=== PATIENT | male | born 1985 | race Caucasian/White ===

== ENCOUNTER 2018-08-16 14:15 | Emergency (ER) | payer MEDICAID ==
--- NOTE | 2018-08-16 14:41 | EDM.PDOC ---
ED HPI GENERAL MEDICAL PROBLEM - General Chief Complaint: Lower Extremity Injury/Pain Stated Complaint: LT FOOT INJURY Time Seen by Provider: 08/16/18 14:30 Source of Information: Reports: Patient History Limitations: Reports: No Limitations - History of Present Illness INITIAL COMMENTS - FREE TEXT/NARRATIVE: 33 yo male inverted his L foot on a hill about 11 am today. Has pain and swelling to the lateral foot. Took ibuprofen before arrival with good relief. Onset: Today Onset Date: 08/16/18 Onset Time: 11:00 Duration: Hour(s):, Constant, Improving Location: Reports: Lower Extremity, Left Quality: Reports: Dull Severity: Mild Improves with: Reports: Rest Worsens with: Reports: Movement Context: Reports: Trauma Associated Symptoms: Reports: No Other Symptoms Treatments SAP MOBILITY ARCHITECT: Reports: NSAIDS Left Ankle Pain Score (Numeric/FACES): 2 - Related Data Allergies Allergy/AdvReac Type Severity Reaction Status Date / Time No Known Allergies Allergy Verified 08/16/18 14:32 Home Meds: Home Meds NK [No Known Home Meds] 08/16/18 [History] Past Medical History - Past Health History Medical/Surgical History: Denies Medical/Surgical History Social & Family History - Tobacco Use Smoking Status *Q: Never Smoker - Caffeine Use Caffeine Use: Reports: Soda - Recreational Drug Use Recreational Drug Use: No Review of Systems - Review of Systems Review Of Systems: See Below Constitutional: Reports: No Symptoms Musculoskeletal: Reports: Foot Pain (L lateral) Skin: Reports: No Symptoms Neurological: Reports: No Symptoms ED EXAM, GENERAL - Physical Exam Exam: See Below Exam Limited By: No Limitations General Appearance: Alert, WD/WN, No Apparent Distress Extremities: Pedal Edema (L lateral foot). No: Non-Tender, Increased Warmth Neurological: Alert, Oriented, CN II-XII Intact, Normal Cognition Psychiatric: Normal Affect, Normal Mood Skin Exam: Warm, Dry, Intact, Normal Color, No Rash Course - Vital Signs Last Recorded V/S: Last Vital Signs Temp 35.6 C 08/16/18 14:31 Pulse 72 08/16/18 14:31 Resp 16 08/16/18 14:31 BP 127/63 08/16/18 14:31 Pulse Ox 99 08/16/18 14:31 - Orders/Labs/Meds Orders: Active Orders 24 hr Category Date Time Status Foot Comp Min 3V Lt [CR] Stat Exams 08/16/18 14:37 Taken - Radiology Interpretation Free Text/Narrative:: L foot X-ray-neg Departure - Departure Time of Disposition: 14:58 Disposition: Home, Self-Care 01 Condition: Good Clinical Impression: Sprain of foot, left Qualifiers: Encounter type: initial encounter Qualified Code(s): S93.602A - Unspecified sprain of left foot, initial encounter - Discharge Information *PRESCRIPTION DRUG MONITORING PROGRAM REVIEWED*: Not Applicable *COPY OF PRESCRIPTION DRUG MONITORING REPORT IN PATIENT DULCE: Not Applicable Instructions: Foot Sprain Referrals: PCP,None [Primary Care Provider] - Forms: ED Department Discharge Additional Instructions: Ibuprofen and/or acetaminophen as needed for pain relief. Elevate and use your DAPHNEY to reduced swelling. Rest. Recheck in a week if not improving. - My Orders Last 24 Hours: My Active Orders 08/16/18 14:37 Foot Comp Min 3V Lt [CR] Stat - Assessment/Plan Last 24 Hours: My Active Orders 08/16/18 14:37 Foot Comp Min 3V Lt [CR] Stat
--- NOTE | 2018-08-18 09:00 | CR ---
Foot Comp Min 3V Lt CLINICAL HISTORY: Pain, swelling, injury FINDINGS: There is no acute fracture or dislocation within the foot. No destructive changes are prese nt. IMPRESSION: No acute bony process.
== END 2018-08-16 15:08 | disposition home or self-care (01) ==
LOC: JP.ED 14:15
DX: S93.602A Unspecified sprain of left foot, initial encounter (principal); X50.1XXA Overexertion from prolonged static or awkward postures, initial encounter
CPT/HCPCS: 73630-26-LT; 73630-LT; 99284